=== PATIENT | male | born 1945 | race Caucasian/White ===

== ENCOUNTER 2022-07-25 07:48 | Outpatient (CLI) | payer MEDICARE, OTHER | END 2022-07-25 07:49 | disposition home or self-care (01) | LOC: CSHMRI 07:48 | PROVIDERS: ATTEND Nurse Practitioner Family | DX: M47.26 Other spondylosis with radiculopathy, lumbar region (principal); M47.816 Spondylosis without myelopathy or radiculopathy, lumbar region; M25.48 Effusion, other site | CPT/HCPCS: 72148 ==

== ENCOUNTER 2022-08-26 08:44 | Outpatient (CLI) | payer MEDICARE, OTHER | END 2022-08-26 08:45 | disposition home or self-care (01) | LOC: CSHMRI 08:44 | PROVIDERS: ATTEND Neurological Surgery | DX: M47.12 Other spondylosis with myelopathy, cervical region (principal); M48.062 Spinal stenosis, lumbar region with neurogenic claudication; G95.89 Other specified diseases of spinal cord; M47.816 Spondylosis without myelopathy or radiculopathy, lumbar region; M43.16 Spondylolisthesis, lumbar region | CPT/HCPCS: 72100; 72141 ==

== ENCOUNTER 2023-02-17 08:06 | Outpatient (CLI) | payer MEDICARE, OTHER | END 2023-02-17 08:07 | disposition home or self-care (01) | LOC: CSHRAD 08:06 | PROVIDERS: ATTEND Neurological Surgery | DX: M47.22 Other spondylosis with radiculopathy, cervical region (principal) | CPT/HCPCS: 72050 ==

== ENCOUNTER 2023-05-10 08:15 | Outpatient (CLI) | payer MEDICARE, OTHER | END 2023-05-10 08:16 | disposition home or self-care (01) | LOC: CSHRAD 08:15 | PROVIDERS: ATTEND Neurological Surgery | DX: M47.812 Spondylosis without myelopathy or radiculopathy, cervical region (principal); Z98.1 Arthrodesis status; M79.89 Other specified soft tissue disorders; M43.12 Spondylolisthesis, cervical region | CPT/HCPCS: 72040 ==